=== PATIENT | female | born 1990 | race Caucasian/White ===

== ENCOUNTER 2016-12-02 17:09 | Emergency (ER) | payer OTHER ==
[2016-12-02] MEDS ORDERED: OPTIRAY 350 100 ML VIAL HMH IV ONE (17:10)
[2016-12-02] MEDS ORDERED: KETOROLAC 30 MG/ML VIAL ONE (21:26)
[2016-12-02] MEDS ORDERED: PANTOPRAZOLE 40 MG VIAL IV ONE (21:26)
[2016-12-02] MEDS ORDERED: SODIUM CHLORIDE 0.9% 1,000 ML ONE (21:26)
[2016-12-02] MEDS ORDERED: ONDANSETRON 4 MG VIAL ONE (21:26)
== END 2016-12-02 23:45 | disposition home or self-care (01) ==
LOC: ER 17:09
DX: R10.13 Epigastric pain (principal); Z33.1 Pregnant state, incidental; I88.0 Nonspecific mesenteric lymphadenitis; K29.71 Gastritis, unspecified, with bleeding
CPT/HCPCS: 36415; 74177; 80053; 81001; 83690; 84703; 85025; 87088; 96361; 96374; 96375; 99284; J1885; J2405; Q9967